=== PATIENT | female | born 2000 | race Caucasian/White ===

== ENCOUNTER 2023-06-07 18:48 | Emergency (ER) | payer OTHER ==
[~2023-06-07] VITALS: Ht 162.6 cm; Wt 58.1 kg
[2023-06-07 18:59] VITALS: O2SAT 97
[2023-06-07] MEDS ORDERED: KETOROLAC TROMETHAMINE 30 MG INJ ONE (19:09)
[2023-06-07] MEDS ORDERED: KETOROLAC TROMETHAMINE 30 MG INJ IM ONE (19:15)
[2023-06-07] MEDS ORDERED: NAPR-1009 PO (19:59)
== END 2023-06-07 20:12 | disposition home or self-care (01) ==
LOC: ER 18:54
DX: S93.402A Sprain of unspecified ligament of left ankle, initial encounter (principal); Z88.0 Allergy status to penicillin; Z79.899 Other long term (current) drug therapy; W10.9XXA Fall (on) (from) unspecified stairs and steps, initial encounter; Y93.89 Activity, other specified; Y92.89 Other specified places as the place of occurrence of the external cause; Y99.8 Other external cause status
CPT/HCPCS: 99283; 73610; 96372; J1885; A4606; A4663